=== PATIENT | female | born 1980 | race American Indian/Alaskan Native ===

== ENCOUNTER 2017-09-17 21:11 | Emergency (ER) | payer MEDICAID ==
[2017-09-17] MEDS ORDERED: ASPIRIN PO ONE (21:42)
[2017-09-17 22:18] LABS: Basophils % (Auto) 0.4 % (0.0-1.8); Eosinophils # (Auto) 0.1 K/mm3 (0.0-0.4); Hematocrit 36.3 % (30.3-42.9); Hemoglobin 12.1 gm/dl (10.1-14.3); Lymphocytes # (Auto) 2.4 K/mm3 (1.2-5.4); Lymphocytes % (Auto) 24.3 % (13.4-35.0); Mean Corpuscular HGB Conc 33 % (30-34); Mean Corpuscular Hemoglobin 29 pg (28-32); Mean Corpuscular Volume 87 fl (79-97); Monocytes # (Auto) 0.6 K/mm3 (0.0-0.8); Monocytes % (Auto) 6.4 % (0.0-7.3); Platelet Count 563 K/mm3 (140-440); Red Blood Count 4.17 M/mm3 (3.65-5.03); Red Cell Distribution Width 15.8 % (13.2-15.2)
[2017-09-17 23:15] LABS: BUN/Creatinine Ratio 15; Blood Urea Nitrogen 9 mg/dL (7-17); Calcium 9.3 mg/dL (8.4-10.2); Hemolysis Index 1
[2017-09-18 01:10] LABS: Bilirubin,Urine NEG (Negative); Blood,Urine NEG (Negative); Color,Urine Yellow (Yellow); Mucus,Urine 2+ /HPF; Urobilinogen,Urine < 2.0 mg/dL (<2.0)
--- NOTE | 2017-09-18 01:31 | Emergency Department Report ---
ED Chest Pain HPI - General Chief Complaint: Chest Pain Stated Complaint: CHEST PAIN/ LEFT ARM PAIN Time Seen by Provider: 09/18/17 00:42 Source: patient Mode of arrival: Ambulatory Limitations: No Limitations - History of Present Illness Initial Comments: 37 year-old female presents to the emergency department with complaint of some midsternal to left-sided chest pain, some nausea and some diaphoresis as well as some numbness down the left arm that started earlier today about 6 PM. Since being in the emergency department she says that the chest pain has resolved but she still has some decreased sensation to the left arm and says she has some associated back pain. She did not take anything for her symptoms prior to presentation. She also says she had some shortness of breath earlier that has since resolved. She has a past medical history of asthma and a psychiatric history of schizoaffective disorder and bipolar disorder. She is a former smoker. No significant family history of early cardiac disease. No recent travel or sick contacts at home. She has a primary care physician but has not seen them regarding her symptoms. Severity scale (0 -10): 5 - Related Data Previous Rx's Medication Instructions Recorded Last Taken Type Dicyclomine [Bentyl] 20 mg PO QID #20 tablet 01/04/15 Unknown Rx Ondansetron [Zofran ODT TAB] 4 mg PO Q6HR #15 tab.rapdis 01/05/15 Unknown Rx Allergies Allergy/AdvReac Type Severity Reaction Status Date / Time tramadol Allergy Itching Verified 01/26/16 12:20 Heart Score - HEART Score History: Slightly suspicious EKG: Normal Age: < 45 Risk factors: 1-2 risk factors Troponin: < normal limit HEART Score: 1 - Critical Actions Critical Actions: 0-3 pts:0.9-1.7%risk of adverse cardiac event.Candidate for discharge ED Review of Systems ROS: Stated complaint: CHEST PAIN/ LEFT ARM PAIN Other details as noted in HPI Comment: All other systems reviewed and negative Constitutional: denies: chills, fever Eyes: denies: eye pain, eye discharge, vision change ENT: denies: ear pain, throat pain Respiratory: shortness of breath (resolved). denies: cough Cardiovascular: chest pain (resolved). denies: palpitations Gastrointestinal: nausea. denies: abdominal pain Genitourinary: denies: urgency, dysuria, discharge Musculoskeletal: denies: back pain, joint swelling Skin: denies: rash, lesions Neurological: numbness. denies: headache ED Past Medical Hx - Past Medical History Previous Medical History?: Yes Hx Asthma: Yes - Surgical History Past Surgical History?: Yes Additional Surgical History: Hernia repair - Social History Smoking Status: Former Smoker Substance Use Type: None - Medications Home Medications: Home Medications Medication Instructions Recorded Confirmed Last Taken Type Dicyclomine [Bentyl] 20 mg PO QID #20 tablet 01/04/15 Unknown Rx Ondansetron [Zofran ODT TAB] 4 mg PO Q6HR #15 tab.rapdis 01/05/15 Unknown Rx ED Physical Exam - General Limitations: No Limitations - Other Other exam information: GENERAL: The patient is well-developed well-nourished. HENT: Normocephalic. Atraumatic. Patient has moist mucous membranes. EYES: Extraocular motions are intact. Pupils equal reactive to light bilaterally. NECK: Supple. Trachea is midline. CHEST/LUNGS: Clear to auscultation. There is no respiratory distress noted. HEART/CARDIOVASCULAR: Regular. There is no tachycardia. There is no murmur. ABDOMEN: Abdomen is soft, nontender. Patient has normal bowel sounds. Obese habitus. SKIN: Skin is warm and dry. NEURO: The patient is awake, alert, and oriented. The patient is cooperative. The patient has no motor deficits. The patient has normal speech. No facial asymmetry. Patient has some subjective decreased sensation to the left arm when compared to the right. MUSCULOSKELETAL: There is no tenderness or deformity. There is no limitation range of motion. There is no evidence of acute injury. Radial pulse +2 over 4 and capillary Refill less than 2 seconds to the affected left arm. ED Course Vital Signs 09/17/17 09/18/17 09/18/17 21:35 00:50 00:55 Temperature 98.3 F 98.5 F Pulse Rate 90 72 Respiratory 20 18 18 Rate Blood Pressure 148/82 Blood Pressure 132/84 [Left] O2 Sat by Pulse 98 100 100 Oximetry 09/18/17 09/18/17 09/18/17 02:30 03:00 04:00 Temperature Pulse Rate 77 77 97 H Respiratory 15 13 17 Rate Blood Pressure 123/79 132/83 123/86 Blood Pressure [Left] O2 Sat by Pulse 99 99 100 Oximetry LIGIA score - Ligia Score Age > 65: (0) No Aspirin use within the Past 7 Days: (0) No 3 or more CAD Risk Factors: (0) No 2 or more Angina events in past 24 hrs: (0) No Known CAD with more than 50% Stenosis: (0) No Elevated Cardiac Markers: (0) No ST Deviation Greater than 0.5mm: (0) No LIGIA Score: 0 ED Medical Decision Making - Lab Data Result diagrams: 09/17/17 21:53 09/17/17 21:53 - EKG Data -: EKG Interpreted by Me EKG shows normal: sinus rhythm, axis, intervals, QRS complexes, ST-T waves Rate: normal - EKG Data When compared to previous EKG there are: previous EKG unavailable Interpretation: normal EKG - Radiology Data Radiology results: report reviewed, image reviewed interpreted by me: Chest x-ray does not show any acute process. There are no pleural effusions, obvious pneumonia and there is no pneumothorax. PROCEDURE: CT FACIAL BONES W CON TECHNIQUE: Computerized tomography of the facial bones and soft tissues with axial and coronal sections performed from the cranial aspect of the frontal sinuses to the caudal portion of the mandible without contrast material. HISTORY: nasal, facial abscess COMPARISON: No prior studies are available for comparison. FINDINGS: Bones: No significant abnormality. Paranasal sinuses: Clear. Soft tissues: There is soft tissue swelling identified along the tip of the nose. A small fluid collection this region measures approximately 10 millimeters. This could represent a subcutaneous abscess forming. The remainder of the soft tissues are normal.. Other: None. IMPRESSION: There is no evidence of an acute fracture dislocation. Soft tissue swelling with fluid collection at the tip of the nose. A small forming abscess in this region is possible, this measures approximately 10 millimeters. Transcribed By: [facility] Dictated By: BERKLEY FARAH MD Electronically Authenticated By: BERKLEY FARAH MD Signed Date/Time: 09/18/17 2713 - Medical Decision Making Patient presents with some complaint of some midsternal left-sided chest pain that happened earlier but has since resolved. She still has some decreased sensation to the left arm and some left lateral upper back pain. EKG is normal [address] elevation [place], ischemia or dysrhythmia. The labs were mostly unremarkable including negative troponins 3 and no signs of infection. Chest x -ray does not show any acute process. The d-dimer was very slightly elevated and equivocal at [address] angiography of the chest was done that resulted as no signs of any pulmonary embolism or dissection or any other acute process. The patient has been reevaluated multiple times over multiple hours and has remained stable. There has been no return of her chest pain. She does have some subjective decreased sensation to the left arm when compared to the right. However the patient does not have any other neurological deficits. There is no headache, facial asymmetry, motor deficits, slurred speech or any signs of any confusion or altered mentation. She is very low on the Troncoso score criteria and low LIGIA score. She has good follow-up with primary care and has been encouraged to see them in the next few days. She has been given a referral for cardiology to follow up outpatient regarding the resolved chest pain. She has been instructed to return to the emergency department with any return of her chest pain, worsening of her symptoms, or with any acute distress. - Differential Diagnosis [place], PE, costochondritis, GERD, neuropathy Critical Care Time: No Critical care attestation.: If time is entered above; I have spent that time in minutes in the direct care of this critically ill patient, excluding procedure time. ED Disposition Clinical Impression: Numbness and tingling in left arm Chest pain Qualifiers: Chest pain type: unspecified Qualified Code(s): R07.9 - Chest pain, unspecified Disposition: DC-01 TO HOME OR SELFCARE Is pt being admited?: No Condition: Stable Instructions: Chest Pain (ED), Paresthesia (ED) Additional Instructions: Please follow-up with your primary care physician in the next few days. I have given you a referral for a local firefighter type one, Dr. Bello, to follow up regarding your previous chest pain. Return to the emergency Department with any worsening of your symptoms or any acute distress. Referrals: GUSTAVO GANDHI NP-C [Primary Care Provider] - 3-5 Days Forms: Accompanied Note Time of Disposition: 05:37
--- NOTE | 2017-09-18 02:07 | XRay Report ---
FINAL REPORT PROCEDURE: XR CHEST 1V AP TECHNIQUE: Chest radiograph anteroposterior view. CPT 17877 HISTORY: CP COMPARISON: No prior studies are available for comparison. FINDINGS: Heart: Normal. Mediastinum/Vessels: Normal. Lungs/Pleural space: Normal. Bony thorax: No acute osseous abnormality. Life support devices: None. IMPRESSION: No acute cardiopulmonary abnormality.
[2017-09-18 04:35] VITALS: BP 123/86
--- NOTE | 2017-09-18 05:24 | Cat Scan Report ---
FINAL REPORT PROCEDURE: CT ANGIO CHEST TECHNIQUE: Computerized axial tomographic angiography of the chest and pulmonary arteries was performed after the IV injection of iodinated nonionic contrast. The image data was postprocessed using maximum intensity projection (MIP) and 2-dimensional multiplanar reformatted (MPR) techniques. The examination is specifically tailored to the evaluation of the pulmonary arteries per clinical request. HISTORY: Short of breath 786.09, chest pain 786.50, CP, elevated dimer COMPARISON: No prior studies are available for comparison. FINDINGS: Heart and pericardium: Normal. Thoracic aorta: Normal. Pulmonary vasculature: Normal. No pulmonary emboli. Lymph nodes: No enlarged thoracic lymph nodes. Lungs: The lungs are clear. No infiltrate, effusion or pneumothorax. The central airway is patent. Pleural space: No effusion, thickening, or pneumothorax. Musculoskeletal structures: No significant abnormality. Upper abdominal structures: No significant abnormality. IMPRESSION: There is no evidence of pulmonary arterial emboli. The lungs are clear without infiltrate, effusion or pneumothorax.
== END 2017-09-18 05:49 | disposition home or self-care (01) ==
LOC: ED 21:11
DX: R07.9 Chest pain, unspecified (principal); R20.2 Paresthesia of skin; J45.909 Unspecified asthma, uncomplicated
CPT/HCPCS: 36415; 71045; 71275; 80048; 81001; 84484; 84703; 85025; 85379; 93005; 93010; 99285; Q9967

== ENCOUNTER 2020-03-27 09:01 | Emergency (ER) | payer MEDICAID ==
[2020-03-27 09:18] VITALS: BP 123/72
--- NOTE | 2020-03-27 09:30 | Emergency Department Report ---
ED General Adult HPI - General Stated complaint: CHEST PAIN Time Seen by Provider: 03/27/20 09:16 - History of Present Illness Initial comments: 40-year-old -[place] female patient presents with complaints of cough, loss of taste/smell, and left-sided chest pain x6 days. She reports recent contact with her who has Covid. Patient states she was referred to the ED by the urgent care for chest x-ray due to her chest pain. She is awaiting her Covid test results. She denies any shortness of breath, leg pain/swelling, recent long travel, leg pain/swelling, or history of DVT/PE. Patient does have an IUD. - Related Data Previous Rx's Medication Instructions Recorded Last Taken Type Ondansetron HCl [Zofran] 4 mg PO TID PRN #15 tablet 03/01/20 Unknown Rx Pantoprazole [Protonix] 40 mg PO QDAY #14 tablet 03/01/20 Unknown Rx levoFLOXacin [Levaquin] 750 mg PO QDAY #11 tablet 03/01/20 Unknown Rx metroNIDAZOLE [Flagyl] 500 mg PO Q8HR #33 tablet 03/01/20 Unknown Rx oxyCODONE /ACETAMINOPHEN [Percocet 1 tab PO BID #8 tablet 03/01/20 Unknown Rx 5/325] Benzonatate 200 mg PO TID #21 capsule 03/27/20 Unknown Rx Allergies Allergy/AdvReac Type Severity Reaction Status Date / Time tramadol Allergy Itching Verified 03/27/20 09:18 ED Review of Systems ROS: Stated complaint: CHEST PAIN Other details as noted in HPI ED Past Medical Hx - Past Medical History Hx Asthma: Yes - Surgical History Additional Surgical History: Hernia repair - Social History Smoking Status: Former Smoker - Medications Home Medications: Home Medications Medication Instructions Recorded Confirmed Last Taken Type Ondansetron HCl [Zofran] 4 mg PO TID PRN #15 tablet 03/01/20 Unknown Rx Pantoprazole [Protonix] 40 mg PO QDAY #14 tablet 03/01/20 Unknown Rx levoFLOXacin [Levaquin] 750 mg PO QDAY #11 tablet 03/01/20 Unknown Rx metroNIDAZOLE [Flagyl] 500 mg PO Q8HR #33 tablet 03/01/20 Unknown Rx oxyCODONE /ACETAMINOPHEN [Percocet 1 tab PO BID #8 tablet 03/01/20 Unknown Rx 5/325] Benzonatate 200 mg PO TID #21 capsule 03/27/20 Unknown Rx ED Course Vital Signs 03/27/20 09:09 Temperature 98.0 F Pulse Rate 81 Respiratory 16 Rate Blood Pressure 123/72 O2 Sat by Pulse 99 Oximetry ED Medical Decision Making - Lab Data Result diagrams: 03/27/20 09:30 03/27/20 09:30 Lab Results 03/27/20 03/27/20 03/27/20 Range/Units 09:30 09:30 09:30 WBC 3.7 L (4.5-11.0) K/mm3 RBC 4.12 (3.65-5.03) M/mm3 Hgb 11.9 (10.1-14.3) gm/dl Hct 35.9 (30.3-42.9) % MCV 87 (79-97) fl MCH 29 (28-32) pg MCHC 33 (30-34) % RDW 18.1 H (13.2-15.2) % Plt Count 408 (140-440) K/mm3 Lymph % (Auto) 41.3 H (13.4-35.0) % [place] % (Auto) 10.5 H (0.0-7.3) % Eos % (Auto) 3.0 (0.0-4.3) % Baso % (Auto) 0.3 (0.0-1.8) % Lymph # (Auto) 1.5 (1.2-5.4) K/mm3 [place] # (Auto) 0.4 (0.0-0.8) K/mm3 Eos # (Auto) 0.1 (0.0-0.4) K/mm3 Baso # (Auto) 0.0 (0.0-0.1) K/mm3 Seg Neutrophils % 44.9 (40.0-70.0) % Seg Neutrophils # 1.7 L (1.8-7.7) K/mm3 Sodium 140 (137-145) mmol/L Potassium 4.2 (3.6-5.0) mmol/L Chloride 103.8 (98-107) mmol/L Carbon Dioxide 30 (22-30) mmol/L Anion Gap 10 mmol/L BUN 5 L (7-17) mg/dL Creatinine 0.7 (0.6-1.2) mg/dL Estimated GFR > 60 ml/min BUN/Creatinine Ratio 7 % Glucose 88 (65-100) mg/dL Calcium 9.7 (8.4-10.2) mg/dL Total Bilirubin 0.20 (0.1-1.2) mg/dL AST 28 (5-40) units/L ALT 19 (7-56) units/L Alkaline Phosphatase 48 (35-129) units/L Troponin T < 0.010 (0.00-0.029) ng/mL Total Protein 8.5 H (6.3-8.2) g/dL Albumin 4.0 (3.9-5) g/dL Albumin/Globulin Ratio 0.9 % HCG, Qual Negative (Negative) - Radiology Data Radiology results: report reviewed CHEST 2 VIEWS INDICATION / CLINICAL INFORMATION: left sided chest pain, cough. COMPARISON: 09/18/2017 FINDINGS: SUPPORT DEVICES: None. HEART / MEDIASTINUM: No significant abnormality. LUNGS / PLEURA: No significant pulmonary or pleural abnormality. No pneumothorax. ADDITIONAL FINDINGS: No significant additional findings. IMPRESSION: No significant abnormality or interval change from 09/18/2017 - Medical Decision Making 40-year-old -[place] female patient presents with complaints of cough, loss of taste/smell, and left-sided chest pain x6 days. She reports recent contact with her who has Covid. Patient states she was referred to the ED by the urgent care for chest x-ray due to her chest pain. She is awaiting her Covid test results. She denies any shortness of breath, leg pain/swelling, recent long travel, leg pain/swelling, or history of DVT/PE. Patient does have an IUD. Physical exam is normal. CBC, CMP, EKG, and troponin are WNL. No acute abnormalities are noted on chest x-ray. Patient's presentation and history not suspicious for PE. Will treat for viral respiratory infection. Patient to follow-up on Covid 19 testing results and discussed importance of self quarantine and vitamin C and zinc intake. She is to follow-up with her primary care doctor in 3 to 5 days. Strict return precautions were discussed in detail with patient who verbalizes understanding peer Critical care attestation.: If time is entered above; I have spent that time in minutes in the direct care of this critically ill patient, excluding procedure time. ED Disposition Clinical Impression: Viral infection of lower respiratory system Disposition: DC-01 TO HOME OR SELFCARE Is pt being admited?: No Condition: Stable Instructions: Viral Respiratory Infection Test, Prevent the Spread of COVID-19 if You Are Sick - [facility] Prescriptions: Benzonatate 200 mg PO TID #21 capsule Referrals: PRIMARY CARE, [Primary Care Provider] - 3-5 Days
[2020-03-27 09:59] LABS: Basophils % (Auto) 0.3 % (0.0-1.8); Eosinophils # (Auto) 0.1 K/mm3 (0.0-0.4); Hematocrit 35.9 % (30.3-42.9); Hemoglobin 11.9 gm/dl (10.1-14.3); Lymphocytes # (Auto) 1.5 K/mm3 (1.2-5.4); Lymphocytes % (Auto) 41.3 % (13.4-35.0); Mean Corpuscular HGB Conc 33 % (30-34); Mean Corpuscular Volume 87 fl (79-97); Monocytes # (Auto) 0.4 K/mm3 (0.0-0.8); Monocytes % (Auto) 10.5 % (0.0-7.3); Platelet Count 408 K/mm3 (140-440); Red Blood Count 4.12 M/mm3 (3.65-5.03); Red Cell Distribution Width 18.1 % (13.2-15.2)
--- NOTE | 2020-03-27 10:18 | XRay Report ---
CHEST 2 VIEWS INDICATION / CLINICAL INFORMATION: left sided chest pain, cough. COMPARISON: 09/18/2017 FINDINGS: SUPPORT DEVICES: None. HEART / MEDIASTINUM: No significant abnormality. LUNGS / PLEURA: No significant pulmonary or pleural abnormality. No pneumothorax. ADDITIONAL FINDINGS: No significant additional findings. IMPRESSION: No significant abnormality or interval change from 09/18/2017 Signer Name: Evan Zurita MD FACNii Signed: 03/27/2020 10:13 AM Workstation Name: [id number]
[2020-03-27 10:26] LABS: Alanine Aminotransferase 19 units/L (7-56); Blood Urea Nitrogen 5 mg/dL (7-17); Calcium 9.7 mg/dL (8.4-10.2); Hemolysis Index 5
[2020-03-27 10:27] LABS: BUN/Creatinine Ratio 7
== END 2020-03-27 11:00 | disposition home or self-care (01) ==
LOC: ED 09:01
DX: J22 Unspecified acute lower respiratory infection (principal); B34.9 Viral infection, unspecified; Z79.899 Other long term (current) drug therapy
CPT/HCPCS: 36415; 71046; 80053; 84484; 84703; 85025; 93005; 99283